=== PATIENT | female | born 1990 | race American Indian/Alaskan Native ===

== ENCOUNTER 2016-07-17 01:02 | Emergency (ER) | payer MEDICARE ==
--- NOTE | 2016-07-17 01:49 | XRay Report ---
FINAL REPORT PROCEDURE: XR FOOT 3 RT TECHNIQUE: RIGHT foot radiographs, AP, lateral, and oblique views. CPT 93393 HISTORY: right pinky toe injury COMPARISON: No prior studies are available for comparison. FINDINGS: Fracture (s) and/or Dislocation(s): There is an impacted fracture involving the head of the proximal phalanx 5th digit left foot.. Joint space(s): Normal . Soft tissues: Normal . Bone mineralization: Normal . Foreign bodies: None . Calcaneal spurring: None . IMPRESSION: There is an impacted fracture involving the head of proximal phalanx 5th digit left foot..
--- NOTE | 2016-07-17 05:28 | Emergency Department Report ---
ED Lower Extremity HPI - General Chief Complaint: Extremity Injury, Lower Stated Complaint: TOE PAIN Source: patient Mode of arrival: Ambulatory Limitations: No Limitations - History of Present Illness Initial Comments: 26-year-old female comes in for complaint of right pinky toe pain and deformity. Patient reports that she was running to get the phone and her toe caught the door facing. She reports that she is pain 9 out of 10. She has no other concerns at this time. -: Sudden - Related Data Previous Rx's Medication Instructions Recorded Last Taken Type HYDROcodone/APAP 5-325 [[place] 2 each PO Q4H PRN #30 tablet 07/01/15 Unknown Rx 5-325 mg TAB] HYDROcodone/APAP 5-325 [[place] 1 each PO Q6HR PRN #15 tablet 07/17/16 Unknown Rx 5/325] Ibuprofen [Motrin 600 MG tab] 600 mg PO Q6H #30 tablet 07/17/16 Unknown Rx Allergies Allergy/AdvReac Type Severity Reaction Status Date / Time No Known Allergies Allergy Verified 07/17/16 01:07 ED Review of Systems ROS: Stated complaint: TOE PAIN Other details as noted in HPI Musculoskeletal: joint swelling (right pinky toe), arthralgia (right pinky toe) ED Past Medical Hx - Past Medical History Previous Medical History?: No Hx Hypertension: No Hx Congestive Heart Failure: No Hx Diabetes: No Hx Deep Vein Thrombosis: No Hx Renal Disease: No Hx Sickle Cell Disease: No Hx Seizures: No Hx Asthma: No Hx COPD: No - Surgical History Past Surgical History?: No - Social History Smoking Status: Current Every Day Smoker Substance Use Type: None - Medications Home Medications: Home Medications Medication Instructions Recorded Confirmed Last Taken Type HYDROcodone/APAP 5-325 [[place] 2 each PO Q4H PRN #30 tablet 07/01/15 Unknown Rx 5-325 mg TAB] HYDROcodone/APAP 5-325 [[place] 1 each PO Q6HR PRN #15 tablet 07/17/16 Unknown Rx 5/325] Ibuprofen [Motrin 600 MG tab] 600 mg PO Q6H #30 tablet 07/17/16 Unknown Rx ED Physical Exam - General Limitations: No Limitations - Expanded Lower Extremity Exam Right Foot/Toe exam: Present: tenderness (fifth digit), swelling (right fifth digit), deformity (right fifth digit). Absent: full ROM, tenderness at base of 5th metatarsal Neuro vascular tendon exam: Present: no vascular compromise. Absent: pulse deficit, abnormal cap refill ED Course Vital Signs 07/17/16 01:07 Temperature 97.6 F Pulse Rate 70 Respiratory 16 Rate Blood Pressure 111/73 O2 Sat by Pulse 97 Oximetry ED Lower Extremity MDM - Radiology Data Radiology results: image reviewed FINAL REPORT PROCEDURE: XR FOOT 3 RT TECHNIQUE: RIGHT foot radiographs, AP, lateral, and oblique views. CPT 86509 HISTORY: right pinky toe injury COMPARISON: No prior studies are available for comparison. FINDINGS: Fracture (s) and/or Dislocation(s): There is an impacted fracture involving the head of the proximal phalanx 5th digit left foot.. Joint space(s): Normal . Soft tissues: Normal . Bone mineralization: Normal . Foreign bodies: None . Calcaneal spurring: None . IMPRESSION: There is an impacted fracture involving the head of proximal phalanx 5th digit left foot.. Transcribed By: [facility] Dictated By: ISAIAH VENCES MD Electronically Authenticated By: ISAIAH VENCES MD Signed Date/Time: 07/17/16 0246 - Medical Decision Making If Plantar Puncture Wound, Discussed with Patient: Risk of Infection, Risk of Foreign Body in W, If X-Rays would be helpfu Patient's been evaluated by this provider in fast track. X-rays showsT here is an impacted fracture involving the head of proximal phalanx 5th digit left foot. She was given a [place] we did a digital block to that toe and attempted to reduce the fracture. Place patient in a postop surgical boot and have her follow up with orthopedics. Patient verbalized understanding Critical care attestation.: If time is entered above; I have spent that time in minutes in the direct care of this critically ill patient, excluding procedure time. ED Disposition Clinical Impression: Fracture of toe of right foot Qualifiers: Encounter type: initial encounter Toe: unspecified toe Fracture type: closed Fracture alignment: nondisplaced Qualified Code(s): S92.911A - Unspecified fracture of right toe(s), initial encounter for closed fracture Disposition: DISCHARGED TO HOME OR SELFCARE Is pt being admited?: No Does the pt Need Aspirin: No Condition: Stable Instructions: Toe Fracture (ED) Additional Instructions: Very important for you to follow-up with orthopedics. Prescriptions: HYDROcodone/APAP 5-325 [[place] 5/325] 1 each PO Q6HR PRN #15 tablet PRN Reason: Pain Ibuprofen [Motrin 600 MG tab] 600 mg PO Q6H #30 tablet Referrals: PRIMARY CARE, [Primary Care Provider] - 3-5 Days SHIV SIERRA MD [Staff Physician] - 3-5 Days
[2016-07-17] MEDS ORDERED: XYLOCAINE 1% 20 mL INFILTRATI ONE (05:36)
[2016-07-17 06:23] VITALS: BP 125/88
== END 2016-07-17 06:23 | disposition home or self-care (01) ==
LOC: ED 01:02
DX: S92.911A Unspecified fracture of right toe(s), initial encounter for closed fracture (principal); F17.200 Nicotine dependence, unspecified, uncomplicated; W23.0XXA Caught, crushed, jammed, or pinched between moving objects, initial encounter; Y93.02 Activity, running; Y99.8 Other external cause status; Y92.89 Other specified places as the place of occurrence of the external cause
CPT/HCPCS: 81025